=== PATIENT | male | born 1970 ===

== ENCOUNTER 2019-06-02 07:20 | Day surgery (SDC) | payer OTHER ==
[~2019-06-02 07:20] MED LIST: CLONAZEPAM0.25 MG/TA PO; PAXIL20 MG; TENORMIN25 MG PO
== END 2019-06-02 14:35 | disposition home or self-care (01) ==
LOC: CIR.AMB 07:20 → ADM 08:45 → CIR.AMB 08:45
DX: M75.122 Complete rotator cuff tear or rupture of left shoulder, not specified as traumatic (principal); M75.42 Impingement syndrome of left shoulder